=== PATIENT | male | born 1975 | race Two or more races ===

== ENCOUNTER 2016-08-01 06:35 | Day surgery (SDC) | payer OTHER ==
[2016-08-01] MEDS ORDERED: SODIUM CHLORIDE LOCK 10 ML ONE (07:59)
[2016-08-01] MEDS ORDERED: LIDOCAINE VISCOUS 2% 15ML UD ONE (07:59)
[2016-08-01] MEDS ORDERED: diphenhdrAMINE HCL 50 MG/1 ML VL ONE (08:00)
[2016-08-01 08:06] LABS: CONDITION Y; Hemoglobin 11.5 g/dL (13.5-17.5); Mean Corpuscular Hgb Conc. 34.8 g/dL (32.0-36.0); Mean Corpuscular Volume 100.7 fL (80.0-100.0); Mean Platelet Volume 8.4 fL (7.4-10.4); Platelet Count (auto) 93 10^3/uL (140-450); Red Cell Distribution Width 13.7 % (11.6-16.0); White Blood Cell 2.6 10^3/uL (4.4-10.8)
[2016-08-01 08:18] LABS: Metamyelocytes % 0; Myelocytes % 0; Partial Thromboplastin Time 33.3 sec (22.64-33.71); Promyelocytes % 0; Reactive Lymphocytes 0
[2016-08-01 08:34] LABS: INR 1.41 (0.9-1.15); Prothrombin Time 15.4 sec (9.37-12.3)
[2016-08-01 10:28] LABS: Platelet Estimate Decreased
[2016-08-01] MEDS: fentaNYL CITRATE 100 MCG/2 ML VL ONE ×2 (11:22→11:25)
[2016-08-01] MEDS: MIDAZOLAM HCL 5 MG/ML-1ML VIAL ONE ×3 (11:22→11:30)
[2016-08-01 12:09] VITALS: BP 128/74
== END 2016-08-01 12:19 | disposition home or self-care (01) ==
LOC: GI 06:35
PROVIDERS: ATTEND Internal Medicine Gastroenterology
DX: K74.60 Unspecified cirrhosis of liver (principal); I85.10 Secondary esophageal varices without bleeding; K76.6 Portal hypertension; K31.89 Other diseases of stomach and duodenum
CPT/HCPCS: 36415; 43235; 85007; 85027; 85610; 85730; J1200; J2250; J3010; J7030

== ENCOUNTER 2016-11-10 12:44 | Inpatient (IN) | payer OTHER ==
[~2016-11-10] VITALS: Ht 188 cm; Wt 103.0 kg
[2016-11-10 13:47] LABS: Basophils # (auto) 0 uL; Basophils % (auto) 0.8 % (0.0-2.0); Eosinophils # (auto) 0 uL; Eosinophils % (auto) 0.3 % (0.0-7.0); Hematocrit 36.7 % (41.0-53.0); Hemoglobin 12.5 g/dL (13.5-17.5); Lymphocytes # (auto) 1.4 uL; Lymphocytes % (auto) 26.9 % (10.0-50.0); Mean Corpuscular Hgb Conc. 34.1 g/dL (32.0-36.0); Mean Corpuscular Volume 99.6 fL (80.0-100.0); Mean Platelet Volume 8.1 fL (6.9-10.8); Monocytes # (auto) 0.3 uL; Monocytes % (auto) 6.2 % (0.0-12.0); Neutrophils # (auto) 3.4 uL; Neutrophils % (auto) 65.8 % (37.0-80.0); Nucleated Red Blood Cells % 0.2 %; Platelet Count (auto) 98 10^3/uL (140-450); Red Cell Distribution Width 15.9 % (11.8-14.3); White Blood Cell 5.2 10^3/uL (4.4-10.8)
[2016-11-10] MEDS ORDERED: SODIUM CHLORIDE 0.9% 1,000 ML IV ONE (13:52)
[2016-11-10] MEDS ORDERED: METOCLOPRAMIDE HCL 5MG/ml INJ 2ml VIAL IV ONE (14:00)
[2016-11-10] MEDS ORDERED: PANTOPRAZOLE 40 MG TAB PO ONE (14:00)
[2016-11-10] MEDS ORDERED: PANTOPRAZOLE 80 MG in SODIUM CHL 0.9% 60 ML IV ONE (14:00)
[2016-11-10 14:04] LABS: INR 1.44 (0.9-1.15); Partial Thromboplastin Time 30.6 sec (22.64-33.71); Prothrombin Time 15.7 sec (9.37-12.3)
[2016-11-10 14:09] LABS: Albumin 3.2 g/dL (3.4-5.0); BUN/Creatinine Ratio 32.4; Bilirubin, Total 2.7 mg/dL (0.2-1.0); Calcium 8.1 mg/dL (8.5-10.1); Potassium 4.7 mmol/L (3.5-5.1); Total Protein 7.5 g/dL (6.4-8.2)
[2016-11-10 14:48] LABS: Magnesium 2.3 mg/dL (1.6-2.6)
[2016-11-10 16:47] LABS: Urine Bilirubin Negative (Negative); Urine Blood Negative /uL (Negative); Urine Color Yellow (Yellow); Urine Glucose Normal (Normal); Urine Ketone Negative (Negative); Urine Nitrite Negative (Negative); Urine RBC <1 /hpf (0 - 3); Urine Urobilinogen Normal (Negative); Urine pH 6.5 (5.0-8.0)
[2016-11-10] MEDS ORDERED: NITROGLYCERIN 0.4 MG SL TAB SL PRN (17:30)
[2016-11-10] MEDS ORDERED: PROMETHAZINE HCL 25 MG/ML 1ML IV PRN (17:30)
[2016-11-10] MEDS ORDERED: MORPHINE SULF INJ 2 MG/ML SYRINGE 1ML IV PRN ×3 (17:30)
[2016-11-10] MEDS ORDERED: PHYTONADIONE (VIT K)10 MG/ML 1ML VIAL SUBCUT ONE (17:30)
[2016-11-10] MEDS ORDERED: LORazepam 2MG/ML-1ML VIAL IV PRN (17:30)
[2016-11-10] MEDS ORDERED: LEVOFLOXACIN 500MG 100 ML IV ONE (17:45)
[2016-11-10] MEDS: SODIUM CHLORIDE 0.9% 1,000 ML IV SCH (17:47)
[2016-11-10 19:51] VITALS: BP 134/88
[2016-11-10 21:51] LABS: Hematocrit 29.5 % (41.0-53.0); Hemoglobin 10.2 g/dL (13.5-17.5)
[2016-11-10] MEDS ORDERED: metroNIDAZOLE 500MG/100ML 100 ML IV ONE (21:57)
[2016-11-10] MEDS: metroNIDAZOLE 500MG/100ML 100 ML IV SCH (22:00)
[2016-11-10] MEDS ORDERED: PANTOPRAZOLE 40 MG/10 ML VIAL IV ONE (22:24)
[2016-11-10 23:22] VITALS: BP 140/77
[2016-11-10 23:37] VITALS: BP 132/73
[2016-11-10 23:52] VITALS: BP 131/74
[2016-11-10] MEDS ORDERED: MORPHINE SULF INJ 2 MG/ML SYRINGE 1ML ONE (23:52)
[2016-11-11] VITALS (10 sets, daily range): BP systolic 125–150; BP diastolic 66–93
[2016-11-11] MEDS ORDERED: LORazepam 2MG/ML-1ML VIAL IV PRN (00:15)
[2016-11-11] MEDS: SODIUM CHLORIDE 0.9% 1,000 ML IV SCH ×4 (03:15→20:45)
[2016-11-11 05:14] LABS: Basophils # (auto) 0 uL; Basophils % (auto) 0.7 % (0.0-2.0); Eosinophils # (auto) 0.1 uL; Eosinophils % (auto) 2.7 % (0.0-7.0); Hematocrit 29.1 % (41.0-53.0); Hemoglobin 10.1 g/dL (13.5-17.5); Lymphocytes # (auto) 1.8 uL; Lymphocytes % (auto) 42.7 % (10.0-50.0); Mean Corpuscular Hemoglobin 34.5 pg (28.0-32.0); Mean Corpuscular Hgb Conc. 34.6 g/dL (32.0-36.0); Mean Corpuscular Volume 99.7 fL (80.0-100.0); Mean Platelet Volume 7.8 fL (6.9-10.8); Monocytes # (auto) 0.4 uL; Monocytes % (auto) 8.7 % (0.0-12.0); Neutrophils # (auto) 1.9 uL; Neutrophils % (auto) 45.2 % (37.0-80.0); Nucleated Red Blood Cells % 0.4 %; Platelet Count (auto) 63 10^3/uL (140-450); Red Cell Distribution Width 15.6 % (11.8-14.3); White Blood Cell 4.2 10^3/uL (4.4-10.8)
[2016-11-11 05:22] LABS: INR 1.47 (0.9-1.15); Prothrombin Time 16.1 sec (9.37-12.3)
[2016-11-11] MEDS ORDERED: metroNIDAZOLE 500MG/100ML 100 ML IV ONE (05:22)
[2016-11-11] MEDS: metroNIDAZOLE 500MG/100ML 100 ML IV SCH ×3 (05:29→21:36)
[2016-11-11 08:17] LABS: Albumin 2.6 g/dL (3.4-5.0); BUN/Creatinine Ratio 28.8; Bilirubin, Total 3.3 mg/dL (0.2-1.0); Calcium 7.9 mg/dL (8.5-10.1); Potassium 4.5 mmol/L (3.5-5.1); Total Protein 6.1 g/dL (6.4-8.2)
[2016-11-11] MEDS: LEVOFLOXACIN 500MG 100 ML IV SCH (09:48)
[2016-11-11] MEDS: PANTOPRAZOLE 80 MG in SODIUM CHL 0.9% 60 ML IV SCH ×3 (09:49)
[2016-11-11] MEDS ORDERED: PANTOPRAZOLE 40 MG/10 ML VIAL IV SCH (10:00)
[2016-11-11] MEDS ORDERED: OCTREOTIDE ACETATE 100 MCG in SODIUM CHL 0.9% 50 ML IV ONE (12:45)
[2016-11-11] MEDS: OCTREOTIDE ACETATE 500 MCG in SODIUM CHL 0.9% 99 ML IV SCH ×2 (13:14→23:45)
[2016-11-11] MEDS ORDERED: SODIUM CHLORIDE LOCK 10 ML ONE (14:26)
[2016-11-11] MEDS ORDERED: diphenhdrAMINE HCL 50 MG/1 ML VL ONE (14:26)
[2016-11-11] MEDS ORDERED: LIDOCAINE VISCOUS 2% 15ML UD ONE (14:26)
[2016-11-11] MEDS: MIDAZOLAM HCL 5 MG/ML-1ML VIAL ONE ×5 (14:44→15:04)
[2016-11-11] MEDS: fentaNYL CITRATE 100 MCG/2 ML VL ONE ×4 (14:44→15:04)
[2016-11-11] MEDS: PANTOPRAZOLE 40 MG/10 ML VIAL IV SCH (21:35)
[2016-11-12] VITALS: BP 142/77
[2016-11-12 04:00] VITALS: BP 129/76
[2016-11-12 05:18] LABS: Basophils # (auto) 0 uL; Basophils % (auto) 0.8 % (0.0-2.0); Eosinophils # (auto) 0.1 uL; Eosinophils % (auto) 3.5 % (0.0-7.0); Hematocrit 29.7 % (41.0-53.0); Hemoglobin 10.3 g/dL (13.5-17.5); Lymphocytes # (auto) 1.2 uL; Lymphocytes % (auto) 47.5 % (10.0-50.0); Mean Corpuscular Hemoglobin 34.7 pg (28.0-32.0); Mean Corpuscular Hgb Conc. 34.7 g/dL (32.0-36.0); Mean Corpuscular Volume 100.1 fL (80.0-100.0); Mean Platelet Volume 7.8 fL (6.9-10.8); Monocytes # (auto) 0.3 uL; Monocytes % (auto) 10.9 % (0.0-12.0); Neutrophils # (auto) 0.9 uL; Neutrophils % (auto) 37.3 % (37.0-80.0); Nucleated Red Blood Cells % 0.1 %; Platelet Count (auto) 63 10^3/uL (140-450); Red Cell Distribution Width 15.7 % (11.8-14.3); White Blood Cell 2.5 10^3/uL (4.4-10.8)
[2016-11-12 05:47] LABS: Platelet Estimate Decreased
[2016-11-12] MEDS: metroNIDAZOLE 500MG/100ML 100 ML IV SCH ×3 (06:10→23:00)
[2016-11-12 07:30] VITALS: BP 138/80
[2016-11-12] MEDS: OCTREOTIDE ACETATE 500 MCG in SODIUM CHL 0.9% 99 ML IV SCH (08:52)
[2016-11-12] MEDS: SODIUM CHLORIDE 0.9% 1,000 ML IV SCH ×2 (08:53→23:02)
[2016-11-12] MEDS: PANTOPRAZOLE 40 MG/10 ML VIAL IV SCH (09:43)
[2016-11-12] MEDS: LEVOFLOXACIN 500MG 100 ML IV SCH (09:43)
[2016-11-12 12:00] VITALS: BP 140/79
[2016-11-12] MEDS: PROPRANOLOL HCL 20 MG TAB PO SCH ×2 (14:34→23:01)
[2016-11-12 16:00] VITALS: BP 134/71
[2016-11-12] MEDS: PANTOPRAZOLE 40 MG TAB PO SCH (23:01)
[2016-11-13] VITALS: BP 143/71
[2016-11-13 03:55] VITALS: BP 135/74
[2016-11-13 05:23] LABS: Basophils # (auto) 0 uL; Basophils % (auto) 0.7 % (0.0-2.0); Eosinophils # (auto) 0.1 uL; Eosinophils % (auto) 2.2 % (0.0-7.0); Hematocrit 28.6 % (41.0-53.0); Hemoglobin 10.1 g/dL (13.5-17.5); Lymphocytes # (auto) 1.4 uL; Lymphocytes % (auto) 28.3 % (10.0-50.0); Mean Corpuscular Hemoglobin 35.3 pg (28.0-32.0); Mean Corpuscular Hgb Conc. 35.3 g/dL (32.0-36.0); Mean Corpuscular Volume 100.1 fL (80.0-100.0); Mean Platelet Volume 7.7 fL (6.9-10.8); Monocytes # (auto) 0.6 uL; Monocytes % (auto) 11.5 % (0.0-12.0); Neutrophils # (auto) 2.9 uL; Neutrophils % (auto) 57.3 % (37.0-80.0); Nucleated Red Blood Cells % 0.1 %; Platelet Count (auto) 77 10^3/uL (140-450); Red Cell Distribution Width 15.4 % (11.8-14.3)
[2016-11-13] MEDS: metroNIDAZOLE 500MG/100ML 100 ML IV SCH ×2 (06:41→13:10)
[2016-11-13] MEDS: PROPRANOLOL HCL 20 MG TAB PO SCH ×2 (06:41→13:11)
[2016-11-13] MEDS: SODIUM CHLORIDE 0.9% 1,000 ML IV SCH (06:57)
[2016-11-13 07:30] VITALS: BP 138/80
[2016-11-13] MEDS: PANTOPRAZOLE 40 MG TAB PO SCH (09:46)
[2016-11-13] MEDS: LEVOFLOXACIN 500MG 100 ML IV SCH (09:46)
[2016-11-13 11:56] VITALS: BP 133/71
[2016-11-13 14:57] VITALS: BP 133/71
== END 2016-11-13 16:49 | DRG 432 ==
LOC: EDBD 12:44 → ER 12:48 → TELE 12:49 → ER 15:04 → TELE 19:23 → DOU IN ICU 19:26
PROVIDERS: ADMIT Internal Medicine; ATTEND Internal Medicine
PROC: 30233L1 Transfusion of Nonautologous Fresh Plasma into Peripheral Vein, Percutaneous Approach (ICD-10-PCS; 2016-11-10)
PROC: 30233K1 Transfusion of Nonautologous Frozen Plasma into Peripheral Vein, Percutaneous Approach (ICD-10-PCS; 2016-11-10)
PROC: 06L34CZ Occlusion of Esophageal Vein with Extraluminal Device, Percutaneous Endoscopic Approach (ICD-10-PCS; principal; 2016-11-11 14:43)
DX: K74.60 Unspecified cirrhosis of liver (principal); I85.11 Secondary esophageal varices with bleeding; K76.6 Portal hypertension; R18.8 Other ascites; B19.10 Unspecified viral hepatitis B without hepatic coma; E77.8 Other disorders of glycoprotein metabolism; N30.90 Cystitis, unspecified without hematuria; K21.9 Gastro-esophageal reflux disease without esophagitis; M54.9 Dorsalgia, unspecified; G89.29 Other chronic pain; K31.89 Other diseases of stomach and duodenum; F17.200 Nicotine dependence, unspecified, uncomplicated; Z83.1 Family history of other infectious and parasitic diseases; Z84.89 Family history of other specified conditions; Z79.899 Other long term (current) drug therapy; Z68.27 Body mass index [BMI] 27.0-27.9, adult
CPT/HCPCS: 36415; 43244; 71020; 74176; 80053; 80061; 81001; 82150; 83690; 83735; 85014; 85018; 85025; 85045; 85610; 85730; 86850; 86900; 86901; 87081; 93005; 93971; 94761; 96365; 96367; 96375; C9113; J1956; J2250; J3430; J3490

== ENCOUNTER 2017-03-13 20:56 | Inpatient (IN) | payer OTHER ==
[~2017-03-13] VITALS: Ht 188 cm; Wt 103.0 kg
[2017-03-13 21:49] LABS: Eosinophils # (auto) 0.1 uL; Monocytes # (auto) 0.4 uL; Neutrophils # (auto) 2.4 uL
[2017-03-13 21:51] LABS: Basophils # (auto) 0 uL; Eosinophils % (auto) 2.3 % (0.0-7.0); Hematocrit 32.7 % (41.0-53.0); Hemoglobin 11.6 g/dL (13.5-17.5); Lymphocytes # (auto) 1.6 uL; Lymphocytes % (auto) 34.6 % (10.0-50.0); Mean Corpuscular Hemoglobin 36.5 pg (28.0-32.0); Mean Corpuscular Hgb Conc. 35.5 g/dL (32.0-36.0); Monocytes % (auto) 9.3 % (0.0-12.0); Neutrophils % (auto) 52.8 % (37.0-80.0); Nucleated Red Blood Cells % 0.2 %; Platelet Count (auto) 85 10^3/uL (140-450); Red Blood Cells 3.18 10^6/uL (4.5-5.90); Red Cell Distribution Width 15.8 % (11.8-14.3); White Blood Cell 4.6 10^3/uL (4.4-10.8)
[2017-03-13 21:59] LABS: Albumin 2.8 g/dL (3.4-5.0); Amylase 53 U/L (25-115); Anion Gap 8 (5-15); BUN/Creatinine Ratio 28.4; Blood Urea Nitrogen 21 mg/dL (7-18); Calcium 7.7 mg/dL (8.5-10.1); Carbon Dioxide 26 mmol/L (21-32); Chloride 103 mmol/L (98-107); GFR African American 151 mL/min; GFR Non-African American 125 mL/min; Glucose 86 mg/dL (74-106); Lipase 252 U/L (73-393); Potassium 4.6 mmol/L (3.5-5.1); Sodium 137 mmol/L (136-145)
[2017-03-13 22:07] LABS: Alanine Aminotransferase 47 U/L (16-61); Alkaline Phosphatase 96 U/L (45-117); Aspartate Aminotransferase 46 U/L (15-37); Bilirubin, Total 1.5 mg/dL (0.2-1.0)
[2017-03-13 22:42] LABS: INR 1.39 (0.9-1.15); Partial Thromboplastin Time 30.3 sec (22.64-33.71); Prothrombin Time 15.2 sec (9.37-12.3)
[2017-03-14] VITALS (8 sets, daily range): BP systolic 105–145; BP diastolic 61–86
[2017-03-14] MEDS ORDERED: ONDANSETRON HCL 4 MG/2 ML VIAL IV PRN (02:18)
[2017-03-14] MEDS: SODIUM CHLORIDE 0.9% 1,000 ML IV SCH ×4 (03:21→23:19)
[2017-03-14] MEDS ORDERED: PROP80CA10 PO (03:28)
[2017-03-14] MEDS ORDERED: MORPHINE SULFATE 10 MG/ML INJ 1ML SDV IV PRN (06:00)
[2017-03-14 06:46] LABS: Basophils # (auto) 0 uL; Eosinophils # (auto) 0.1 uL; Eosinophils % (auto) 2.1 % (0.0-7.0); Lymphocytes # (auto) 1.4 uL; Monocytes # (auto) 0.4 uL; Neutrophils # (auto) 1.6 uL
[2017-03-14 06:50] LABS: Basophils % (auto) 0.6 % (0.0-2.0); Hematocrit 28.5 % (41.0-53.0); Lymphocytes % (auto) 40.9 % (10.0-50.0); Mean Corpuscular Hemoglobin 36.2 pg (28.0-32.0); Mean Corpuscular Hgb Conc. 35.1 g/dL (32.0-36.0); Mean Corpuscular Volume 103.1 fL (80.0-100.0); Monocytes % (auto) 10.5 % (0.0-12.0); Neutrophils % (auto) 45.9 % (37.0-80.0); Nucleated Red Blood Cells % 0.1 %; Platelet Count (auto) 62 10^3/uL (140-450); Red Blood Cells 2.76 10^6/uL (4.5-5.90); Red Cell Distribution Width 15.4 % (11.8-14.3); White Blood Cell 3.5 10^3/uL (4.4-10.8)
[2017-03-14] MEDS ORDERED: OCTREOTIDE ACETATE 100 MCG in SODIUM CHL 0.9% 50 ML IV ONE (08:45)
[2017-03-14] MEDS ORDERED: OCTREOTIDE ACETATE 500 MCG in SODIUM CHL 0.9% 99 ML IV SCH (08:45)
[2017-03-14] MEDS ORDERED: LIDOCAINE VISCOUS 2% 15ML UD ONE (09:31)
[2017-03-14] MEDS ORDERED: SODIUM CHLORIDE LOCK 10 ML ONE (09:31)
[2017-03-14] MEDS ORDERED: diphenhdrAMINE HCL 50 MG/1 ML VL ONE (09:32)
[2017-03-14] MEDS ORDERED: PANTOPRAZOLE 40 MG/10 ML VIAL IV SCH (10:00)
[2017-03-14] MEDS: FUROSEMIDE 20 MG/2 ML VIAL IV SCH (10:05)
[2017-03-14] MEDS: SPIRONOLACTONE 25 MG TAB PO SCH (10:06)
[2017-03-14] MEDS: PROPRANOLOL HCL 20 MG TAB PO SCH (10:07)
[2017-03-14] MEDS: PHYTONADIONE (VIT K)10 MG/ML 1ML VIAL SUBCUT SCH (10:08)
[2017-03-14 10:25] LABS: Urine Bacteria NONE SEEN /hpf (None Seen); Urine Blood 1+ /uL (Negative); Urine Specific Gravity 1.029 (1.001-1.035); Urine WBC 1 /hpf (0 - 3)
[2017-03-14] MEDS: MIDAZOLAM HCL 5 MG/ML-1ML VIAL ONE ×2 (13:55→13:58)
[2017-03-14] MEDS: fentaNYL CITRATE 100 MCG/2 ML VL ONE ×2 (13:55→13:58)
[2017-03-14] MEDS: PANTOPRAZOLE 40 MG TAB PO SCH (21:09)
[2017-03-14] MEDS: MORPHINE SULFATE 4 MG/ML SYR/VIAL IV PRN (21:09)
[2017-03-15] MEDS: MORPHINE SULFATE 4 MG/ML SYR/VIAL IV PRN (01:11)
[2017-03-15 05:00] VITALS: BP 117/71
[2017-03-15] MEDS: SODIUM CHLORIDE 0.9% 1,000 ML IV SCH ×2 (06:39→11:40)
[2017-03-15 06:51] LABS: Basophils # (auto) 0 uL; Basophils % (auto) 0.9 % (0.0-2.0); Eosinophils # (auto) 0.1 uL; Eosinophils % (auto) 3.8 % (0.0-7.0); Hematocrit 28.9 % (41.0-53.0); Lymphocytes # (auto) 1.2 uL; Lymphocytes % (auto) 42.6 % (10.0-50.0); Mean Corpuscular Hemoglobin 36.4 pg (28.0-32.0); Mean Corpuscular Hgb Conc. 34.6 g/dL (32.0-36.0); Mean Corpuscular Volume 105.2 fL (80.0-100.0); Monocytes # (auto) 0.3 uL; Neutrophils # (auto) 1.2 uL; Neutrophils % (auto) 40.7 % (37.0-80.0); Nucleated Red Blood Cells % 0.1 %; Platelet Count (auto) 66 10^3/uL (140-450); Red Blood Cells 2.74 10^6/uL (4.5-5.90); Red Cell Distribution Width 15.3 % (11.8-14.3); White Blood Cell 2.9 10^3/uL (4.4-10.8)
[2017-03-15 08:00] VITALS: BP 115/55
[2017-03-15] MEDS ORDERED: LACTULOSE 20Gm/30ML SOLN PO ONE (08:45)
[2017-03-15 09:00] VITALS: BP 115/55
[2017-03-15] MEDS: SPIRONOLACTONE 25 MG TAB PO SCH (11:37)
[2017-03-15] MEDS: FUROSEMIDE 20 MG/2 ML VIAL IV SCH (11:37)
[2017-03-15] MEDS: PANTOPRAZOLE 40 MG TAB PO SCH (11:37)
[2017-03-15] MEDS: PROPRANOLOL HCL 20 MG TAB PO SCH (11:39)
[2017-03-15] MEDS: PHYTONADIONE (VIT K)10 MG/ML 1ML VIAL SUBCUT SCH (11:40)
[2017-03-15 13:00] VITALS: BP 114/61
[2017-03-15 13:20] VITALS: BP 115/55
== END 2017-03-15 16:20 | disposition left against medical advice (07) | DRG 377 ==
LOC: EDBD 20:56 → ER 21:03 → EEVIPCON 21:04 → OVERFLOW 21:04 → EAST 03-14 02:48
PROVIDERS: ADMIT Internal Medicine; ATTEND Internal Medicine
PROC: 0DJ08ZZ Inspection of Upper Intestinal Tract, Via Natural or Artificial Opening Endoscopic (ICD-10-PCS; principal; 2017-03-14 13:52)
DX: K29.81 Duodenitis with bleeding (principal); K85.90 Acute pancreatitis without necrosis or infection, unspecified; D69.6 Thrombocytopenia, unspecified; K76.6 Portal hypertension; B19.10 Unspecified viral hepatitis B without hepatic coma; K70.30 Alcoholic cirrhosis of liver without ascites; K26.4 Chronic or unspecified duodenal ulcer with hemorrhage; K29.71 Gastritis, unspecified, with bleeding; K72.10 Chronic hepatic failure without coma; I10 Essential (primary) hypertension; K21.9 Gastro-esophageal reflux disease without esophagitis; K31.89 Other diseases of stomach and duodenum; G89.29 Other chronic pain; I85.10 Secondary esophageal varices without bleeding
CPT/HCPCS: 36415; 43235; 71045; 74176; 80053; 81001; 82150; 83690; 84484; 85025; 85610; 85730; 93005; 96365; 96375; C9113; J2250; J2405; J3430

== ENCOUNTER 2017-04-03 13:50 | Inpatient (IN) | payer OTHER ==
[~2017-04-03] VITALS: Ht 190.5 cm; Wt 106.0 kg
[~2017-04-03 13:50] MED LIST: PROP80CA10 PO
[2017-04-03 14:31] LABS: Basophils # (auto) 0 uL; Eosinophils # (auto) 0 uL; Eosinophils % (auto) 0.3 % (0.0-7.0); Lymphocytes # (auto) 1.1 uL; Monocytes # (auto) 0.3 uL; Neutrophils # (auto) 2.8 uL; White Blood Cell 4.2 10^3/uL (4.4-10.8)
[2017-04-03 14:34] LABS: Basophils % (auto) 0.7 % (0.0-2.0); Hematocrit 30.1 % (41.0-53.0); Hemoglobin 10.4 g/dL (13.5-17.5); Lymphocytes % (auto) 25.3 % (10.0-50.0); Mean Corpuscular Hemoglobin 35.6 pg (28.0-32.0); Mean Corpuscular Hgb Conc. 34.6 g/dL (32.0-36.0); Mean Corpuscular Volume 102.8 fL (80.0-100.0); Neutrophils % (auto) 66.7 % (37.0-80.0); Nucleated Red Blood Cells % 0.4 %; Platelet Count (auto) 93 10^3/uL (140-450); Red Blood Cells 2.93 10^6/uL (4.5-5.90); Red Cell Distribution Width 14.9 % (11.8-14.3)
[2017-04-03] MEDS ORDERED: SODIUM CHLORIDE 0.9% 1,000 ML IV ONE ×2 (14:36)
[2017-04-03] MEDS ORDERED: PANTOPRAZOLE 40 MG/10 ML VIAL IV ONE (14:45)
[2017-04-03 15:32] LABS: INR 1.38 (0.9-1.15); Partial Thromboplastin Time 31.3 sec (22.64-33.71); Prothrombin Time 15.1 sec (9.37-12.3)
[2017-04-03 15:34] LABS: Albumin 2.8 g/dL (3.4-5.0); BUN/Creatinine Ratio 23.8; Calcium 7.8 mg/dL (8.5-10.1)
[2017-04-03] MEDS ORDERED: IOHEXOL 300 MG/ML 100ML BOTTLE IJ ONE (15:51)
[2017-04-03 15:57] LABS: Bilirubin, Total 1.5 mg/dL (0.2-1.0)
[2017-04-03 19:11] LABS: Urine Bacteria NONE SEEN /hpf (None Seen); Urine Blood Negative /uL (Negative); Urine Specific Gravity 1.048 (1.001-1.035); Urine WBC <1 /hpf (0 - 3)
[2017-04-03 23:00] VITALS: BP 141/79
[2017-04-04] MEDS ORDERED: FURO40TA4 PO (01:10)
[2017-04-04] MEDS ORDERED: POTA20TA53 PO (01:10)
[2017-04-04] MEDS ORDERED: LACT10SO3 PO (01:13)
[2017-04-04] MEDS ORDERED: OMEP20TA PO (01:13)
[2017-04-04] MEDS ORDERED: SPIR25TA89 PO (01:13)
[2017-04-04] MEDS ORDERED: SUCR1SUS8 PO (01:14)
[2017-04-04 04:42] VITALS: BP 119/63
[2017-04-04 08:00] VITALS: BP 113/56
[2017-04-04 09:00] VITALS: BP 113/56
[2017-04-04] MEDS ORDERED: PROPRANOLOL HCL 20 MG TAB PO ONE (10:00)
[2017-04-04] MEDS: PANTOPRAZOLE 40 MG/10 ML VIAL IV SCH ×2 (10:00→23:45)
[2017-04-04] MEDS ORDERED: SODIUM CHLORIDE LOCK 10 ML ONE (10:55)
[2017-04-04] MEDS ORDERED: LIDOCAINE VISCOUS 2% 15ML UD ONE (10:55)
[2017-04-04] MEDS ORDERED: diphenhdrAMINE HCL 50 MG/1 ML VL ONE (10:56)
[2017-04-04] MEDS ORDERED: ONDANSETRON HCL 4 MG/2 ML VIAL IV PRN (12:30)
[2017-04-04] MEDS: fentaNYL CITRATE 100 MCG/2 ML VL ONE ×2 (12:55→12:58)
[2017-04-04] MEDS: MIDAZOLAM HCL 5 MG/ML-1ML VIAL ONE ×2 (12:55→12:58)
[2017-04-04 13:00] VITALS: BP 95/47
[2017-04-04 17:00] VITALS: BP 104/56
[2017-04-04 22:22] VITALS: BP 125/84
[2017-04-04] MEDS: HYDROcodone-ACET 10/325MG TAB PO PRN (22:39)
[2017-04-05] VITALS (8 sets, daily range): BP systolic 107–150; BP diastolic 49–99
[2017-04-05 05:56] LABS: Basophils # (auto) 0 uL; Basophils % (auto) 0.1 % (0.0-2.0); Eosinophils # (auto) 0 uL; Hemoglobin 8.4 g/dL (13.5-17.5); Mean Corpuscular Hemoglobin 36.3 pg (28.0-32.0); Neutrophils % (auto) 84.9 % (37.0-80.0); Red Blood Cells 2.31 10^6/uL (4.5-5.90)
[2017-04-05 05:58] LABS: Hematocrit 24.1 % (41.0-53.0); Lymphocytes # (auto) 0.7 uL; Lymphocytes % (auto) 5.9 % (10.0-50.0); Mean Corpuscular Hgb Conc. 34.8 g/dL (32.0-36.0); Mean Corpuscular Volume 104.3 fL (80.0-100.0); Monocytes % (auto) 9.1 % (0.0-12.0); Neutrophils # (auto) 9.7 uL; Platelet Count (auto) 63 10^3/uL (140-450); Red Cell Distribution Width 14.4 % (11.8-14.3); White Blood Cell 11.4 10^3/uL (4.4-10.8)
[2017-04-05] MEDS: PANTOPRAZOLE 40 MG/10 ML VIAL IV SCH ×2 (10:01→22:00)
[2017-04-05 12:36] LABS: Urine Bacteria NONE SEEN /hpf (None Seen); Urine Blood Negative /uL (Negative); Urine Specific Gravity 1.025 (1.001-1.035); Urine WBC 1 /hpf (0 - 3)
[2017-04-05] MEDS ORDERED: CEFTRIAXONE SODIUM 2 GM in D5W 5% 50 ML IV ONE (12:45)
[2017-04-05] MEDS ORDERED: ACETAMINOPHEN 325 MG TAB PO PRN (12:45)
[2017-04-05 14:07] LABS: Basophils # (auto) 0 uL; Eosinophils # (auto) 0 uL; Hemoglobin 7.6 g/dL (13.5-17.5)
[2017-04-05 14:08] LABS: Basophils % (auto) 0.1 % (0.0-2.0); Hematocrit 22.4 % (41.0-53.0); Lymphocytes # (auto) 0.7 uL; Lymphocytes % (auto) 9.5 % (10.0-50.0); Mean Corpuscular Hemoglobin 35.7 pg (28.0-32.0); Mean Corpuscular Hgb Conc. 34.1 g/dL (32.0-36.0); Mean Corpuscular Volume 104.7 fL (80.0-100.0); Monocytes # (auto) 0.6 uL; Neutrophils # (auto) 6.5 uL; Neutrophils % (auto) 82.4 % (37.0-80.0); Platelet Count (auto) 55 10^3/uL (140-450); Red Blood Cells 2.14 10^6/uL (4.5-5.90); Red Cell Distribution Width 14.7 % (11.8-14.3); White Blood Cell 7.8 10^3/uL (4.4-10.8)
[2017-04-05 14:30] LABS: Albumin 2.3 g/dL (3.4-5.0); BUN/Creatinine Ratio 14.4; Bilirubin, Total 2.1 mg/dL (0.2-1.0); Calcium 7.1 mg/dL (8.5-10.1); Total Protein 5.8 g/dL (6.4-8.2)
[2017-04-06 04:35] VITALS: BP 114/62
[2017-04-06 06:32] LABS: Albumin 2.3 g/dL (3.4-5.0); BUN/Creatinine Ratio 16.5; Bilirubin, Total 1.6 mg/dL (0.2-1.0); Total Protein 5.8 g/dL (6.4-8.2)
[2017-04-06 07:33] VITALS: BP 108/74
[2017-04-06 08:00] VITALS: BP 132/78
[2017-04-06] MEDS: PANTOPRAZOLE 40 MG/10 ML VIAL IV SCH ×2 (10:05→22:32)
[2017-04-06] MEDS: cefTRIAXone 1GM/10ml IVPUSH 10 ML IV SCH (10:05)
[2017-04-06] MEDS ORDERED: HYOSCYAMINE SULF 0.125 MG TAB PO PRN (10:45)
[2017-04-06 11:52] VITALS: BP 120/63
[2017-04-06 12:30] LABS: Hemoglobin 8.4 g/dL (13.5-17.5); White Blood Cell 3.2 10^3/uL (4.4-10.8)
[2017-04-06 12:31] LABS: Hematocrit 24.6 % (41.0-53.0); Mean Corpuscular Hemoglobin 35.1 pg (28.0-32.0); Mean Corpuscular Volume 102.9 fL (80.0-100.0); Platelet Count (auto) 48 10^3/uL (140-450); Red Blood Cells 2.39 10^6/uL (4.5-5.90); Red Cell Distribution Width 16.6 % (11.8-14.3)
[2017-04-06 12:34] LABS: Band Neutrophils % (manual) 0; Basophils % (manual) 0 (0.0-2.0); Blast Cells 0; Metamyelocytes % 0; Myelocytes % 0; Promyelocytes % 0; Reactive Lymphocytes 0
[2017-04-06 13:07] LABS: Eosinophils % (manual) 2 (0-7); Lymphocytes % (manual) 29 (10.0-50.0); Monocytes % (manual) 16 (0-12)
[2017-04-06 17:21] VITALS: BP 111/77
[2017-04-06 22:01] VITALS: BP 113/63
[2017-04-06] MEDS: HYDROcodone-ACET 10/325MG TAB PO PRN (22:32)
[2017-04-07 04:37] VITALS: BP 124/61
[2017-04-07 09:00] VITALS: BP 139/7
[2017-04-07] MEDS: cefTRIAXone 1GM/10ml IVPUSH 10 ML IV SCH (10:20)
[2017-04-07] MEDS: PANTOPRAZOLE 40 MG/10 ML VIAL IV SCH (10:20)
[2017-04-07 13:00] VITALS: BP 123/56
== END 2017-04-07 13:00 | DRG 432 ==
LOC: ER 13:50 → EDBD 13:50 → EEVIPCON 13:51 → EAST 13:51
PROVIDERS: ADMIT Internal Medicine; ATTEND Internal Medicine
PROC: 06L38CZ Occlusion of Esophageal Vein with Extraluminal Device, Via Natural or Artificial Opening Endoscopic (ICD-10-PCS; 2017-04-04)
PROC: 30233N1 Transfusion of Nonautologous Red Blood Cells into Peripheral Vein, Percutaneous Approach (ICD-10-PCS; principal; 2017-04-05)
DX: K74.60 Unspecified cirrhosis of liver (principal); I85.11 Secondary esophageal varices with bleeding; K76.6 Portal hypertension; B19.10 Unspecified viral hepatitis B without hepatic coma; K31.89 Other diseases of stomach and duodenum; G89.4 Chronic pain syndrome; I10 Essential (primary) hypertension; K21.9 Gastro-esophageal reflux disease without esophagitis; Z79.899 Other long term (current) drug therapy
CPT/HCPCS: 36415; 43244; 71045; 74177; 80053; 81001; 84484; 85007; 85025; 85027; 85610; 85730; 86850; 86900; 86901; 86920; 87040; 87081; 87086; 96361; 96374; C9113; J0696; J2250; J7060

== ENCOUNTER → 2017-04-09 | Outpatient (CLI) | payer OTHER ==
[~2017-04-09] VITALS: Ht 188 cm; Wt 97.5 kg
[~2017-04-09] MED LIST changes: +FURO40TA4 PO; +LACT10SO3 PO; +OMEP20TA PO; +POTA20TA53 PO; +SPIR25TA89 PO; +SUCR1SUS8 PO
== END | disposition home or self-care (01) ==
LOC: Rad HDHVI 07:57
PROVIDERS: ATTEND Internal Medicine Cardiovascular Disease
DX: R07.9 Chest pain, unspecified (principal); R42 Dizziness and giddiness; I10 Essential (primary) hypertension; Z82.49 Family history of ischemic heart disease and other diseases of the circulatory system
CPT/HCPCS: 78452; 93017; 96374; A9500